=== PATIENT | male | born 1945 | race Caucasian/White ===

== ENCOUNTER 2020-05-08 15:44 | Emergency (ER) | payer OTHER ==
[~2020-05-08] VITALS: Ht 172.7 cm; Wt 93.9 kg
[~2020-05-08 15:44] MED LIST: ATACAND4 MG; LIPITOR20 MG; METFORMIN HCL500 MG
[2020-05-08] MEDS ORDERED: MYRBETRIQ25 MG (16:39)
[2020-05-08] MEDS ORDERED: CLONAZEPAM0.5 MG (16:40)
[2020-05-08] MEDS ORDERED: ALLOPURINOL300 MG (16:41)
[2020-05-08] MEDS ORDERED: SERTRALINE 100 MG (16:42)
== END 2020-05-08 18:49 | disposition home or self-care (01) ==
LOC: ER 15:44
DX: S90.112A Contusion of left great toe without damage to nail, initial encounter (principal); S50.11XA Contusion of right forearm, initial encounter; S80.01XA Contusion of right knee, initial encounter; W18.09XA Striking against other object with subsequent fall, initial encounter; Y93.89 Activity, other specified; Y92.018 Other place in single-family (private) house as the place of occurrence of the external cause; Y99.8 Other external cause status